=== PATIENT | female | born 1985 | race American Indian/Alaskan Native ===

== ENCOUNTER 2017-11-24 14:10 | Emergency (ER) | payer OTHER ==
[2017-11-24 14:11] VITALS: BMI 24.7
[2017-11-24 14:19] VITALS: BP 114/72; PULSE 89; RESP 18; TEMP 98.4; O2SAT 98
--- NOTE | 2017-11-24 15:39 | ED PDOC ---
HPI: Back Time Seen by Provider: 11/24/17 14:22 Chief Complaint (Nursing): Back Pain Chief Complaint (Provider): Low back pain, radiating down the right buttocks History/Exam Limitations: no limitations Onset/Duration Of Symptoms: Days Current Symptoms Are (Timing): Still Present Quality Of Discomfort: Sharp Severity: Severe Pain Scale Rating Of: 10 Previous Symptoms: Back Pain (Pt reports similar in the past but not as severe. ) Additional Complaint(s): Pt states she bent over to pet a dog and had severe sharp pain radiating to the right buttocks. Pt reports similar in the past when working out but not as severe. Pt seen by clinical writer ambulating to the ER with steady gait. Pt denies fever /chills. Numbness/tingling. Denies fever/chills. No bladder or bowel incontinence. Past Medical History Reviewed: Historical Data, Nursing Documentation, Vital Signs Vital Signs: Last Vital Signs Temp 98.4 F 11/24/17 14:16 Pulse 89 11/24/17 14:16 Resp 18 11/24/17 14:16 BP 114/72 11/24/17 14:16 Pulse Ox 98 11/24/17 14:16 - Medical History PMH: No Chronic Diseases - Surgical History Surgical History: No Surg Hx - Family History Family History: States: No Known Family Hx - Living Arrangements Living Arrangements: With Family - Social History Current smoker - smoking cessation education provided: No Alcohol: None Drugs: Denies - Home Medications Home Medications: Ambulatory Orders Medication Instructions Recorded Docusate [Colace] 100 mg PO TID #20 cap 08/06/16 Hydrocortisone [Proctosol-Hc] 28.35 gm RC TID #1 08/06/16 traMADol [Ultram] 50 mg PO TID #10 tab 08/06/16 Cyclobenzaprine [Cyclobenzaprine 10 mg PO Q8H PRN #12 tab 11/24/17 HCl] Ibuprofen [Motrin Tab] 800 mg PO Q6H PRN #20 tab 11/24/17 oxyCODONE/Acetaminophen [Percocet 1 ea PO Q6H PRN #5 tab 11/24/17 5/325 mg Tab] - Allergies Allergies/Adverse Reactions: Allergies Allergy/AdvReac Type Severity Reaction Status Date / Time No Known Allergies Allergy Verified 08/06/16 16:00 Review of Systems ROS Statement: Except As Marked, All Systems Reviewed And Found Negative Constitutional: Negative for: Fever, Chills Musculoskeletal: Positive for: Back Pain Physical Exam - Reviewed Nursing Documentation Reviewed: Yes Vital Signs Reviewed: Yes - Physical Exam Appears: Positive for: Well, Non-toxic, No Acute Distress Head Exam: Positive for: ATRAUMATIC, NORMAL INSPECTION, NORMOCEPHALIC Skin: Positive for: Normal Color, Warm, DRY Eye Exam: Positive for: Normal appearance ENT: Positive for: Normal ENT Inspection Neck: Positive for: Normal, Painless ROM Cardiovascular/Chest: Positive for: Regular Rate, Rhythm Respiratory: Positive for: CNT, Normal Breath Sounds Gastrointestinal/Abdominal: Positive for: Normal Exam, Soft Back: Positive for: Normal Inspection Extremity: Positive for: Normal ROM Neurologic/Psych: Positive for: Alert, Oriented - ECG O2 Sat by Pulse Oximetry: 98 Medical Decision Making Medical Decision Making: No improvement after tyleol and flexeril. Toradol ordered. Pt states she is still in a lot of pain. Percocet ordered. Disposition - Clinical Impression Clinical Impression: Sciatica - Patient ED Disposition Is Patient to be Admitted: No Counseled Patient/Family Regarding: Diagnosis, Need For Followup, Rx Given - Disposition Disposition: Routine/Home Disposition Time: 16:59 Condition: GOOD Prescriptions: Cyclobenzaprine [Cyclobenzaprine HCl] 10 mg PO Q8H PRN #12 tab PRN Reason: Muscle Spasm Ibuprofen [Motrin Tab] 800 mg PO Q6H PRN #20 tab PRN Reason: Pain oxyCODONE/Acetaminophen [Percocet 5/325 mg Tab] 1 ea PO Q6H PRN #5 tab PRN Reason: Pain, Severe (8-10) Instructions: Sciatica (DC) Forms: [employer] ([place])
[2017-11-24] MEDS ORDERED: Oxycodone/Acetaminophen 5/325 mg Tab PO STA (16:58)
[2017-11-24] MEDS ORDERED: Oxycodone/Acetaminophen 5/325 mg Tab ONE (17:35)
--- NOTE | 2017-11-24 18:18 | RAD ---
PROCEDURE: Radiographs of the Lumbar Spine. HISTORY: low back pain COMPARISON: No prior. FINDINGS: BONES: Normal alignment. No listhesis. No fracture. DISC SPACES: Unremarkable. OTHER FINDINGS: None. IMPRESSION: Unremarkable radiographs of the lumbar spine.
== END 2017-11-24 17:38 | disposition home or self-care (01) ==
LOC: H.ER 14:10
DX: M54.31 Sciatica, right side (principal)
CPT/HCPCS: 72100; 81025; 96372; 99283; J1885